=== PATIENT | female | born 1960 | race Caucasian/White ===

== ENCOUNTER 2016-07-12 15:32 | Inpatient (IN) | payer OTHER ==
[~2016-07-12] VITALS: Ht 157.4 cm; Wt 70.0 kg
[2016-07-12] VITALS (7 sets, daily range): BP systolic 111–140; BP diastolic 60–87
--- NOTE | ~2016-07-12 | PR ---
[place], [place] PROGRESS NOTE NAME: ANDERSON HDZ UNIT #: [id number] ROOM: 405 DOCTOR: LUAN ARCHER MD BIRTHDATE: [birth year] DOS: 07/15/2016 SUBJECTIVE: She has been noted without any ongoing acute new complaints at this time, shortness breath was still noted with exertion. She has been assessed for home oxygen supplementation. Denies symptoms of chest pain or any abdominal pain. OBJECTIVE: VITAL SIGNS: For the patient, the temperature of the patient recorded as normal. The respiratory rate 20, heart rate 94, blood pressure 142/93. Intake is 3100 mL, output 500 mL. Pulse oxygen saturation on room air 91% and decreased to 87% with ambulation and with 3-4 liters oxygen supplementation, the oxygen saturation improved more than 92%. CARDIOVASCULAR: S1, S2 audible. LUNGS: Noted moderate decreased breath sounds with occasional wheezing, no crackles. ABDOMEN: Soft, nontender. LABORATORY DATA: BMP essentially was noted as grossly normal. The culture of the sputum the patient showed normal kurtis from the of this month. CBC this morning: WBC count 17,000. Hemoglobin and hematocrit and platelet count were normal. IMPRESSION: 1. The patient with resolving acute hypoxic respiratory failure with acute exacerbation of chronic obstructive pulmonary disease, new onset. 2. Acute bronchitis. 3. Leukocytosis, steroid induced. PLAN OF TREATMENT: Potential discharge the patient in the home setting with the tapering dose of prednisone, antibiotics and other medications for the patient reports discharge as the bronchodilators as well. Abstinence from tobacco use. Arrangement for the home oxygen. Outpatient patient's assessment was suggested in a couple of weeks. [place], [place] PROGRESS NOTE NAME: ANDERSON HDZ UNIT #: [id number] ROOM: 405 DOCTOR: LUAN ARCHER MD BIRTHDATE: [birth year] LUAN TELLEZ MD CM:PNTRANS [id number] LUAN BUTLER MD 07/15/16 2111 interface
--- NOTE | ~2016-07-12 | CON ---
[place], [place] REPORT OF CONSULTATION [facility]: [id number] UNIT #: [id number] ROOM: 405 DOCTOR: ROSALINDA BUTLER MDLUAN BIRTHDATE: [birth year] DOS: 07/13/2016 PULMONARY CONSULTATION, EVALUATION AND MANAGEMENT CONSULTATION REQUESTED BY: Hospitalist services. REASON FOR CONSULTATION: For assessment of symptoms of shortness of breath. HISTORY OF PRESENT ILLNESS: This is a 56-year-old female who has been admitted to the hospital. The patient developed symptoms of increased shortness of breath, which has been occurring for the past one week. Symptoms has been noted progressively worse. The patient reported to the Emergency Room for further assessment. She has not been assessed and managed for the current shortness of breath as an outpatient prior to that. She has been also noted symptoms of coughing, which has been noted nonproductive with wheezing. The patient denies any symptoms of chest pain, hematemesis or chest trauma. REVIEW OF SYSTEMS: CONSTITUTIONAL: She does have symptoms of fatigue, but denies symptoms of fever or chills at home. EYES: Denies any burning, redness, or tenderness. EARS, NOSE, THROAT: No sore throat, hoarseness, otalgia, postnasal drainage. CARDIOVASCULAR SYSTEM: Denies anginal pain, edema or pain of the lower extremities. GASTROINTESTINAL: Denies nausea, vomiting, diarrhea, hematemesis, melena, dysphagia, or abnormal weight loss history. GENITOURINARY: Denies dysuria, suprapubic pain, hematuria. MUSCULOSKELETAL: Denies acute joint pain, redness, or tenderness. SKIN: No lesions or rashes. CENTRAL NERVOUS SYSTEM: No dizziness, headache, diplopia or seizures or tingling sensation of the extremities. Remaining systems were reviewed with the patient, they were noted all negative. PAST MEDICAL HISTORY: 1. Noted with history of gastroesophageal reflux. 2. Hypothyroidism. 3. Lupus. 4. History of cervical radiculopathy. 5. Gastroesophageal reflux. PAST SURGICAL HISTORY: 1. Bilateral salpingo-oophorectomy. 2. Cholecystectomy 3. Mastoidectomy. 4. T and A. 5. Myomectomy. SOCIAL HISTORY: The patient stated that she is . She has one child. Smoking was noted for the patient at younger age 1.5 packs of cigarettes per [place], [place] REPORT OF CONSULTATION NAME: ANDERSON HDZ UNIT #: [id number] ROOM: 405 DOCTOR: ROSALINDA BUTLER MD,LUAN BIRTHDATE: [birth year] day, for the past 1 year smoking about half a pack of cigarettes per day. Denies any history of illicit drug use or any occupation related pulmonary exposure. FAMILY HISTORY: The patient's mother at the age of 6969 years old from complications of Lewy body dementia. Father at age of 6666 years old, complications related to COPD. HOME MEDICATIONS: Listed levothyroxine, multivitamin, Aleve, nifedipine, omeprazole, vitamin D and other p.r.n. medications administration. DRUG ALLERGIES: Noted allergy: 1. AMOXICILLIN. 2. CODEINE PHOSPHATE. 3. TEGRETOL. 4. PLAQUENIL. 5. BACTRIM. PHYSICAL EXAMINATION: GENERAL: The patient is a 56-year-old female who has been noted currently awake and alert without any distress at the time of the assessment. VITAL SIGNS: Height of 5 feet 2 inches, weight of 154 pounds, BMI 28.2. Vital signs show a normal temperature, respirations 16-20, heart rate of 101-112. The blood pressure 121/74-128/75. Intake for the patient 950, output 800 mL. Pulse oxygen saturation on 2 L nasal cannula for this patient was noted as 99% on room air was 75% saturation. Later with a Venturi mask for this patient 6 liters of oxygen with 35% oxygen 95% saturation recorded this morning. HEENT: Shows head was atraumatic. Eyes nonicterus. NECK: Supple. CARDIOVASCULAR SYSTEM: S1, S2 is audible. LUNGS: Showed diffuse expiratory wheezing in the lung was noted with decreased breath sounds. No crackles were heard. ABDOMEN: Soft, nontender. LABORATORY DATA: PT and PTT yesterday were noted normal on admission. CMP of the patient yesterday on admission was noted with normal BUN and creatinine and other electrolytes. The alkaline phosphatase mildly elevated at 143. CBC of the patient that was done yesterday on admission, hemoglobin of 15.1, hematocrit 45.3, WBC count was normal. Platelet count was normal. The CK-MB and troponin for this patient noted with CPK mildly elevated to 130 with normal MB. The troponin was noted normal. CBC this morning was noted as normal, second set of CK-MB, troponin, CPK is mildly elevated at 220 with normal MB and troponin. PT/PTT repeated again this morning was normal. CMP this morning was noted with normal BUN and creatinine, sodium 148. The urine culture, the patient was noted with no bacterial growth. Chest x-ray of the patient that was done for the patient on admission 07/12/2016 was noted without any acute pulmonary infiltration with mild hyperinflation of the lungs was noted. CT scan of the chest was done with a CTA protocol. The patient does not show evidence of pulmonary embolism, centrilobular emphysematous changes noted in the upper lungs bilaterally scattered in the remaining lungs. There were no findings of [place], [place] REPORT OF CONSULTATION NAME: ANDERSON HDZ UNIT #: [id number] ROOM: 405 DOCTOR: ROSALINDA BUTLER MD,LUAN BIRTHDATE: [birth year] acute pulmonary infiltration were also noted. There were no pleural effusions. There were no abnormal pulmonary nodules. IMPRESSION: 1. The patient who has been currently admitted to the hospital with acute severe hypoxic respiratory failure related to the acute exacerbation of chronic obstructive pulmonary disease new onset, family history of chronic obstructive pulmonary disease was also noted in the dad. 2. History of described as a lupus for this patient does not seem to active manifestations at the present time and she does not use any medication for the lupus. 3. History of chronic nicotine dependency as well. 4. Acute bacterial bronchitis. The patient suspected with streptococcal infection would be considered as well with atypical organisms. PLAN OF TREATMENT: The patient has been started on IV Solu-Medrol for this patient that will be continued at the current dosing. The dose will be decreased from tomorrow morning. Continuation of the Zithromax and Rocephin that should adequately cover typical and atypical organisms with acute bacterial bronchitis. Abstinence from tobacco for the patient was encouraged. Use the nicotine replacement patch to overcome any nicotine withdrawal. Elevation of CPK is noted; most likely secondary to increased muscle activity because of current difficulty breathing or might be related to infections. It does not seem to be related to any active acute coronary artery syndrome. Collect any sputum for Gram stain and culture. The patient is able to expectorate. The long-term management of the current new onset of COPD and bronchial asthma will be started as well with initial use of Dulera for the patient to be started during the current hospitalization. At this time, the patient would not require any use of the Mucinex since she has been expectorating sputum. The cough has not been noted very severe. Usual care, other previous treatment plan of therapy to be continued. Supportive plan of management. Usual treatments. LUAN TELLEZ MD CM:CONSTR:REPORT OF CONSULTATION 1315 07/13/16 2595 interface
--- NOTE | ~2016-07-12 | PR ---
[place], [place] PROGRESS NOTE NAME: ANDERSON HDZ UNIT #: [id number] ROOM: 405 DOCTOR: ROSALINDA BUTLER MD,LUAN BIRTHDATE: [birth year] DOS: 07/14/2016 SUBJECTIVE: She has been reporting reduction in her respiratory symptoms of shortness of breath, coughing. Wheezing was also noted with gradual reduction. Denies symptoms of chest pain or any abdominal pain. OBJECTIVE: VITAL SIGNS: For the patient which has been recorded showed normal temperature, respiratory rate 20, heart rate 116-99, blood pressure 146/90 to 135/82. Her pulse oxygen saturation on 28% Venturi mask was 98% saturation. HEENT: Examination shows head was atraumatic. Eyes nonicterus. CARDIOVASCULAR: S1, S2 audible. LUNGS: The patient was noted without any crackles. The wheezing of the patient was present, but it has been gradually diminished as compared to previous examinations. ABDOMEN: Soft, nontender. LABORATORY DATA: BMP this morning noted normal BUN and creatinine. The CBC this morning, WBC count 13.4, hemoglobin and hematocrit were normal, platelet count was normal. Blood culture, no bacterial growth from the 24 of this month. Sputum culture preliminary showing normal kurtis. Final culture results were pending from the . IMPRESSION: The patient who has been noted gradual reduction and improvement in the respiratory symptoms with resolving acute hypoxic respiratory failure as well as exacerbation of chronic obstructive pulmonary disease. PLAN OF TREATMENT: Continue corticosteroids, bronchodilators, antibiotics. Possible discharge planning in the morning for the patient will be considered with monitoring culture results. Home oxygen assessment need for the patient will be done tomorrow morning. Other supportive plan and management to be continued. Usual care. No change in steroid dose needs to be done. LUAN TELLEZ MD CM:PNTRANS [id number] LUAN BUTLER MD 07/15/16 0010 interface
[~2016-07-12 15:32] MED LIST: 'PARAFON FORTE500 M1 PO; ACID REDUCER 1150 MG PO; BACLOFEN20 M1 PO; FLOMAX0.4 MG PO; LEVOTHYROXIN0.025 MG PO; NORTRIPTYLINE H50 M2 PO; OMEPRAZOLE40 MG PO; PREDNISONE10 MG PO; ZANAFLEX2 M1 PO; ZYRTEC10 MG PO
[2016-07-12 15:55] LABS: HEMATOCRIT 45.3 % (37.0-47.0); HEMOGLOBIN 15.1 g/dl (12.0-16.0); MEAN CELL VOLUME 88.3 fl (81.0-99.0); MEAN CORPUSCULAR HGB 29.4 pg (27.0-31.0); MEAN CORPUSCULAR HGB CONC 33.3 g/dl (33.0-37.0); MEAN PLATELET VOLUME 10.4 fl (9.6-12.3); PLATELET COUNT AUTOMATED 208 10*3/uL (130-400); RED BLOOD COUNT 5.13 10*6/uL (4.10-5.10); RED CELL DISTRI WIDTH 14.6 % (0-14.5); WHITE BLOOD COUNT 8.5 10*3/uL (4.8-10.8)
[2016-07-12 16:07] LABS: PROTHROMBIN TIME 10.5 SECONDS (9.0-12.4)
[2016-07-12 16:14] LABS: ALKALINE PHOSPHATASE 143 U/L (45-117); BILIRUBIN, TOTAL 0.4 mg/dl (0.2-1.0); BUN 8 mg/dl (7-24); CARBON DIOXIDE 27 mmol/L (21-32); CHLORIDE 102 mmol/L (98-107); EST GLOM FILT AFRICAN AMERICAN > 60 ml/min; GLUCOSE 110 mg/dL (65-99); POTASSIUM 3.8 mmol/L (3.5-5.1); SGOT/AST 33 IU/L (3-35); SGPT/ALT 38 U/L (12-78); SODIUM 140 mmol/L (136-145); TOTAL PROTEIN 7.1 gm/dL (6.4-8.2)
[2016-07-12 16:16] LABS: TROPONIN I < 0.015 ng/ml (<0.045)
[2016-07-12 16:18] LABS: ATYPICAL LYMPHS 1 % (0-0); BASOPHIL # 0.3 10*3/uL (0-0.1); BASOPHILS 3 % (0-1); LYMPHOCYTE # 1.7 10*3/uL (1.3-4.4); MONOCYTE # 1.1 10*3/uL (0.1-1.0); NEUTROPHIL # 5.4 10*3/uL (2.3-7.9); NEUTROPHILS 64 % (47-73); PLATELET SUFFICIENCY NORMAL (NORMAL); TOTAL CELLS COUNTED 100 #CELLS
[2016-07-12] MEDS ORDERED: NIFEDIPINE30 MG PO (16:47)
[2016-07-12] MEDS ORDERED: ALEVE220 M1 PO (16:47)
[2016-07-12] MEDS ORDERED: MULTI VITAMINS1 TAB PO (16:47)
[2016-07-12] MEDS ORDERED: VITAMIN D3400 UNIT PO (16:47)
[2016-07-12] MEDS ORDERED: REFRESH 1 ML1 ML OPH (16:48)
[2016-07-12 17:39] LABS: BILIRUBIN NEGATIVE (NEGATIVE); BLOOD TRACE-INTACT (NEGATIVE); CLARITY SL CLOUDY (CLEAR); COLOR YELLOW (YELLOW); GLUCOSE NEGATIVE (NEGATIVE); KETONE NEGATIVE (NEGATIVE); LEUKO ESTERASE 3+ (NEGATIVE); NITRITE NEGATIVE (NEGATIVE); PROTEIN TRACE (NEGATIVE); SPECIFIC GRAVITY 1.015 (1.005-1.030)
[2016-07-12 17:47] LABS: WBC 16-20 wbc/hpf (0-5)
[2016-07-12 17:48] LABS: BACTERIA 3+; HYALINE CAST 0-2; URINE REFLEX COMMENT YES (NO)
[2016-07-13] VITALS: BP 122/72
[2016-07-13 00:44] LABS: CPK 231 U/L (26-192)
[2016-07-13 00:45] LABS: TROPONIN I < 0.015 ng/ml (<0.045)
[2016-07-13 06:27] LABS: BASO % 0.4 % (0.0-1.0); IG # 0.1 10*3/uL (0.0-0.1); LYMPH # 1.5 10*3/uL (1.3-4.4); LYMPH % 20.8 % (27.0-41.0); MEAN CELL VOLUME 91.1 fl (81.0-99.0); MEAN CORPUSCULAR HGB 29.1 pg (27.0-31.0); MONO # 1.5 10*3/uL (0.1-1.0); NEUT # 4.2 10*3/uL (2.3-7.9); NEUT % 57.7 % (47.0-73.0); PLATELET COUNT AUTOMATED 202 10*3/uL (130-400); RED BLOOD COUNT 4.26 10*6/uL (4.10-5.10); RED CELL DISTRI WIDTH 14.9 % (0-14.5); WHITE BLOOD COUNT 7.3 10*3/uL (4.8-10.8)
[2016-07-13 06:28] LABS: HEMATOCRIT 38.8 % (37.0-47.0); HEMOGLOBIN 12.4 g/dl (12.0-16.0)
[2016-07-13 06:38] LABS: CKMB 2.9 ng/ml (0.5-3.6); CPK 228 U/L (26-192)
[2016-07-13 06:41] LABS: TROPONIN I < 0.015 ng/ml (<0.045)
[2016-07-13 06:56] LABS: ALBUMIN 3.2 gm/dl (3.1-4.5); ALKALINE PHOSPHATASE 113 U/L (45-117); BILIRUBIN, TOTAL 0.2 mg/dl (0.2-1.0); BUN 9 mg/dl (7-24); CARBON DIOXIDE 28 mmol/L (21-32); CHLORIDE 110 mmol/L (98-107); CHOLESTEROL 110 mg/dL (<200); EST GLOM FILT AFRICAN AMERICAN > 60 ml/min; FREE T4 1.28 ng/dl (0.76-1.46); GLUCOSE 112 mg/dL (65-99); HDL CHOLESTEROL 51 mg/dl (40-60); LDL CHOLESTEROL 49 mg/dL (9-159); MAGNESIUM 2.6 mg/dL (1.5-2.1); PHOSPHOROUS 3.1 mg/dL (2.5-4.9); POTASSIUM 3.8 mmol/L (3.5-5.1); SGOT/AST 27 IU/L (3-35); SGPT/ALT 33 U/L (12-78); SODIUM 148 mmol/L (136-145); TRIGLYCERIDES 51 mg/dl (<150); VLDL CHOLESTEROL 10 mg/dL (6-40)
[2016-07-13 06:59] LABS: PROTHROMBIN TIME 10.5 SECONDS (9.0-12.4)
[2016-07-13 07:40] LABS: HEMOGLOBIN A1c 5.5 % (4.8-5.6)
[2016-07-13 08:00] VITALS: BP 137/85
[2016-07-13 08:12] LABS: VITAMIN D, 25-HYDROXY 43.8 ng/mL (30-100)
[2016-07-13 08:40] LABS: FOLIC ACID > 24.00 ng/mL (>5.38)
[2016-07-13 12:00] VITALS: BP 141/89
[2016-07-13 12:22] LABS: CKMB 3.9 ng/ml (0.5-3.6); TROPONIN I 0.017 ng/ml (<0.045)
[2016-07-13 16:00] VITALS: BP 148/91
[2016-07-13 20:00] VITALS: BP 152/85
[2016-07-14] VITALS: BP 137/86
[2016-07-14 06:49] LABS: BASO % 0.2 % (0.0-1.0); HEMATOCRIT 38.5 % (37.0-47.0); HEMOGLOBIN 12.2 g/dl (12.0-16.0); IG # 0.3 10*3/uL (0.0-0.1); LYMPH # 1.5 10*3/uL (1.3-4.4); LYMPH % 10.8 % (27.0-41.0); MEAN CELL VOLUME 92.5 fl (81.0-99.0); MEAN CORPUSCULAR HGB 29.3 pg (27.0-31.0); MEAN CORPUSCULAR HGB CONC 31.7 g/dl (33.0-37.0); MEAN PLATELET VOLUME 10.7 fl (9.6-12.3); MONO # 1.4 10*3/uL (0.1-1.0); MONO % 10.3 % (3.0-9.0); NEUT # 10.3 10*3/uL (2.3-7.9); NEUT % 76.7 % (47.0-73.0); PLATELET COUNT AUTOMATED 240 10*3/uL (130-400); RED BLOOD COUNT 4.16 10*6/uL (4.10-5.10); RED CELL DISTRI WIDTH 15.2 % (0-14.5); WHITE BLOOD COUNT 13.4 10*3/uL (4.8-10.8)
[2016-07-14 07:15] LABS: CHLORIDE 110 mmol/L (98-107); EST GLOM FILT AFRICAN AMERICAN > 60 ml/min; POTASSIUM 3.9 mmol/L (3.5-5.1); SODIUM 146 mmol/L (136-145)
[2016-07-14 07:18] LABS: BUN 12 mg/dl (7-24); CARBON DIOXIDE 27 mmol/L (21-32); GLUCOSE 117 mg/dL (65-99)
[2016-07-14 08:00] VITALS: BP 135/82
[2016-07-14 12:00] VITALS: BP 146/92
[2016-07-14 16:00] VITALS: BP 132/77
[2016-07-14 20:00] VITALS: BP 110/50; BP 140/86
[2016-07-15] VITALS: BP 127/82
[2016-07-15 07:53] LABS: HEMATOCRIT 38.7 % (37.0-47.0); HEMOGLOBIN 12.4 g/dl (12.0-16.0); MEAN CELL VOLUME 90.4 fl (81.0-99.0); MEAN PLATELET VOLUME 10.4 fl (9.6-12.3); PLATELET COUNT AUTOMATED 265 10*3/uL (130-400); RED BLOOD COUNT 4.28 10*6/uL (4.10-5.10); RED CELL DISTRI WIDTH 15.4 % (0-14.5); WHITE BLOOD COUNT 17.1 10*3/uL (4.8-10.8)
[2016-07-15 07:56] LABS: BUN 16 mg/dl (7-24); CARBON DIOXIDE 26 mmol/L (21-32); CHLORIDE 112 mmol/L (98-107); EST GLOM FILT AFRICAN AMERICAN > 60 ml/min; GLUCOSE 80 mg/dL (65-99); POTASSIUM 3.6 mmol/L (3.5-5.1); SODIUM 146 mmol/L (136-145)
[2016-07-15 08:00] VITALS: BP 142/93
[2016-07-15 08:14] LABS: LYMPHOCYTE # 1.7 10*3/uL (1.3-4.4); METAMYELOCYTES 1 % (0-0); MYELOCYTES 1 % (0-0); NEUTROPHILS 82 % (47-73); PLATELET SUFFICIENCY NORMAL (NORMAL); TOTAL CELLS COUNTED 100 #CELLS
[2016-07-15 12:00] VITALS: BP 139/80
[2016-07-15] MEDS ORDERED: PREDNISONE10 MG PO (14:27)
[2016-07-15] MEDS ORDERED: DOXYCYCLINE100 MG PO (14:27)
[2016-07-15] MEDS ORDERED: DULE1ARO INH (14:27)
[2016-07-15] MEDS ORDERED: VENTOLIN H0.09 MG/AC INH (14:27)
[2016-07-15] MEDS ORDERED: OXYGEN NAS (14:27)
== END 2016-07-15 15:50 | disposition home or self-care (01) | DRG 871 ==
LOC: ED 15:32 → EDHOLD 17:11 → 4E 17:45
PROVIDERS: Emergency Medicine; Hospitalist; Internal Medicine
DX: A41.9 Sepsis, unspecified organism (principal); J96.01 Acute respiratory failure with hypoxia; J18.9 Pneumonia, unspecified organism; M32.9 Systemic lupus erythematosus, unspecified; E87.0 Hyperosmolality and hypernatremia; E44.1 Mild protein-calorie malnutrition; G36.0 Neuromyelitis optica [Devic]; J44.1 Chronic obstructive pulmonary disease with (acute) exacerbation; J44.0 Chronic obstructive pulmonary disease with (acute) lower respiratory infection; R65.20 Severe sepsis without septic shock; R82.71 Bacteriuria; R31.29 Other microscopic hematuria; R73.9 Hyperglycemia, unspecified; F17.210 Nicotine dependence, cigarettes, uncomplicated; I10 Essential (primary) hypertension; K21.9 Gastro-esophageal reflux disease without esophagitis; E03.9 Hypothyroidism, unspecified; E83.51 Hypocalcemia; J20.9 Acute bronchitis, unspecified; T38.0X5A Adverse effect of glucocorticoids and synthetic analogues, initial encounter; Z90.49 Acquired absence of other specified parts of digestive tract; Z88.1 Allergy status to other antibiotic agents; Z88.8 Allergy status to other drugs, medicaments and biological substances; Z79.899 Other long term (current) drug therapy